=== PATIENT | female | born 2000 | race Two or more races ===

== ENCOUNTER 2020-04-02 19:22 | Emergency (ER) | payer SELFPAY ==
[2020-04-02 19:45] VITALS: BP 113/70
--- NOTE | 2020-04-02 19:56 | ER Document Report ---
ED Medical Screen (RME) - General Chief Complaint: Abscess Stated Complaint: PELVIC PAIN Time Seen by Provider: 04/02/20 19:49 Mode of Arrival: Ambulatory Information source: Patient Notes: 19-year-old female presented to ED for abscess to the right groin times a week. She thought it was an ingrown hair. She states she used warm compresses and tried to squeeze it and it actually got bigger after some pus came out of it. She states her pain level is a 5 out of 5. I asked that she needed any Tylenol or Motrin at this time. She states no she does not want either 1 of those. She states she just wants the abscess out. Patient states she does not smoke and is never smoke she does drink monthly and does use marijuana. States last menstrual period was March 17. She states she has had abscesses in the past and had to be I&D. Patient is alert oriented respirations regular nonlabored speaking in full sentences. I have greeted and performed a rapid initial assessment of this patient. A comprehensive ED assessment and evaluation of the patient, analysis of test results and completion of medical decision making process will be conducted by an additional ED providers. Past Medical History - Social History Frequency of alcohol use: Occasional Drug Abuse: Marijuana Physical Exam - Vital signs Vitals: Temp Pulse Resp BP Pulse Ox 98.5 F 74 16 113/70 98 04/02/20 19:42 04/02/20 19:42 04/02/20 19:42 04/02/20 19:42 04/02/20 19:42 Course - Vital Signs Vital signs: Temp Pulse Resp BP Pulse Ox 98.5 F 74 16 113/70 98 04/02/20 19:42 04/02/20 19:42 04/02/20 19:42 04/02/20 19:42 04/02/20 19:42
== END 2020-04-03 00:48 | disposition left against medical advice (07) ==
LOC: ER 19:22
DX: L02.214 Cutaneous abscess of groin (principal)
CPT/HCPCS: 99281